=== PATIENT | male | born 1990 | race Caucasian/White ===

== ENCOUNTER → 2023-03-28 08:42 | Outpatient (BNVA) | payer OTHER, SELFPAY | PROVIDERS: PCP Pediatrics; Visit Provider Physician Assistant Medical | DX: S33.9XXA Sprain of unspecified parts of lumbar spine and pelvis, initial encounter (principal); X50.1XXA Overexertion from prolonged static or awkward postures, initial encounter; M46.1 Sacroiliitis, not elsewhere classified | CPT/HCPCS: 99203 ==

== ENCOUNTER → 2023-04-05 08:05 | Outpatient (BNVA) | payer OTHER, SELFPAY | PROVIDERS: PCP Internal Medicine; Visit Provider Physician Assistant Medical | DX: S33.9XXA Sprain of unspecified parts of lumbar spine and pelvis, initial encounter (principal); X50.1XXA Overexertion from prolonged static or awkward postures, initial encounter | CPT/HCPCS: 99214 ==

== ENCOUNTER → 2023-04-14 10:11 | Outpatient (BNVA) | payer OTHER, SELFPAY | PROVIDERS: PCP Internal Medicine; Visit Provider Physician Assistant Medical | DX: S39.012A Strain of muscle, fascia and tendon of lower back, initial encounter (principal); X58.XXXA Exposure to other specified factors, initial encounter; M53.3 Sacrococcygeal disorders, not elsewhere classified | CPT/HCPCS: 99213 ==

== ENCOUNTER → 2023-04-28 08:10 | Outpatient (BNVA) | payer OTHER, SELFPAY | PROVIDERS: PCP Internal Medicine; Visit Provider Physician Assistant Medical | DX: S33.9XXD Sprain of unspecified parts of lumbar spine and pelvis, subsequent encounter (principal); X50.1XXD Overexertion from prolonged static or awkward postures, subsequent encounter; M46.1 Sacroiliitis, not elsewhere classified | CPT/HCPCS: 99213 ==

== ENCOUNTER → 2023-05-12 08:18 | Outpatient (BNVA) | payer OTHER, SELFPAY | PROVIDERS: PCP Internal Medicine; Visit Provider Physician Assistant Medical | DX: S33.9XXA Sprain of unspecified parts of lumbar spine and pelvis, initial encounter (principal); X50.3XXA Overexertion from repetitive movements, initial encounter | CPT/HCPCS: 99213 ==

== ENCOUNTER → 2023-06-02 08:26 | Outpatient (BNVA) | payer OTHER, SELFPAY | PROVIDERS: PCP Internal Medicine; Visit Provider Physician Assistant Medical | DX: S33.9XXA Sprain of unspecified parts of lumbar spine and pelvis, initial encounter (principal); X50.3XXA Overexertion from repetitive movements, initial encounter; M53.3 Sacrococcygeal disorders, not elsewhere classified; M54.16 Radiculopathy, lumbar region | CPT/HCPCS: 99213 ==

== ENCOUNTER 2023-06-02 09:00 | Outpatient (RCR) | payer OTHER, BC, SELFPAY ==
--- NOTE | 2023-04-04 09:26 | MHC.PT.EP ---
[facility] [place] Office [place] Office [place] Office [address] [phone] F: [phone] F: [phone] F: [phone] F: [phone] Physical Therapy Plan of Care Date of Evaluation: Date of Surgery: Diagnosis: lumbosacral strain with SI pain. Assessment: Patient is a 33 year old R handed male who presents with s/s consistent with lumbosacral strain, SI pain. 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 Patient past medical history is unremarkable. Current impairments include pain, posture, ROM, strength, activity tolerance and functional mobility. Functional limitations include decreased ability to walk, stand, lift, push, pull, drive, and perform most daily activities without modification. Patient is motivated with good rehab potential. Skilled PT will address impairments and functional limitations in order to achieve goals. Frequency and Duration: The patient will be seen 2x/week for 5 weeks Short Term Goals: I with HEP - 2 weeks centralize/eliminate s/s - 3 weeks TTP absent, normal tissue tension - 3 weeks Manager [employer] Goals: Restore full pain free AROM - 5 weeks safe return to all work activities with improved awareness of body mechanics - 5 weeks Oswestry 18% or less - 5 weeks Pain free with all daily activities - 5 weeks Treatment Plan: Modalities to reduce pain, spasms and effusion. Manual therapy to restore motion and function. Therapeutic exercise to improve strength and flexibility. Neuromuscular re-education for posture and balance. Therapeutic activities to return to functional activities of daily living. Electronically signed by: Stephen White, PT Please sign and return to therapist. Thank you for your referral.
--- NOTE | 2023-08-30 13:21 | MHC.PT.DC ---
[facility] [place] Office [place] Office [place] Office [address] [phone] F: [phone] F: [phone] F: [phone] F: [phone] Physical Therapy Discharge Report Diagnosis: lumbosacral strain with SI pain. Date of Surgery: Date of Evaluation: 04/04/23 Date of Discharge: 06/16/23 Treatments to Date: 16 Cancellations to Date: No Shows to Date: Discharge Status: Independent with HEP Discharge Summary: 06/02/23: pt has progressed well over the course of skilled PT. However, he still has been dealing with residual s/s that he has not been able to relinquish over the course of the last few weeks. He still has intermittent s/s in L leg per his report. He is I with HEP. Until a month ago, his s/s had shown promising centralization. Due to recurrence of s/s into leg, we will hold at this time and await MRI imaging. His oswestry at this time is 34% (70% on evaluation). He does have full AROM at this time. 05/25/23: pt 30 minutes late again. notes he has been having intermittent s/s since yesterday. I asked if he had used his HEP to manage which he notes he did a little and the s/s would go away. I educated him thoroughly in the importance of knowing how/being confident in ability to manage s/s, knowing which exercises to practice should s/s arrise. we will review this again and I will re-issue HEP NV. 05/18/23: pt progressing well and ready to taper to HEP. we discussed plan and we will d/c to HEP after 1x/week for2 more weeks. 05/16/23: pt progressing well with skilled PT. reduced discomfort and improved functional mobility tolerance. we will continue 1 more visit then d/c to HEP. 05/13/23: pt progressed with walking and strength. starting light duty on Tuesday. we will continue to progress for 1 more week then likely d/c to HEP. 05/11/23: pt 30 min late. accommodated. progressed with skilled PT for core stab, centralizing s/s and reducing tissue tension. good response. 05/04/23: pt continues to demonstrate improved functional mobility, ROM, and ease of movement. However, he still does have difficulty performing more strenuous and activities as well as being on his feet for more than 20-30 minutes. 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 He still has impairments including tissue tension, pain and functional mobility. He also has functional limitations such as walking, standing, transfers, bending, lifting, and other more strenuous types of activity. I would like to continue with skilled PT for 3 more weeks to ensure safe return to all daily and work activities. He has demonstrated good compliance and carryover as well as good motivation and rehab potential throughout the course of PT. 05/02/23: pt has been feeling better overall with skilled PT but still has intermittent lingering discomfort seemingly related to positions and activities. he is able to manage. 04/27/23: pt with less s/s today. able to resume functional progression with no adverse reactions. he will follow up with work connection and tentatively plan on 1 more week of PT. 04/25/23: pt with increased s/s today. we held on functional training and focused on education. some lat shift present which progressed with increased amb time. educated in importance of self maintenance of s/s at home. 04/22/23: pt continues to progress with good carryover and body mechanics with few cues required. educated him in importance of stretching and continuing to be attentive to body mechanics. 04/20/23: pt has been feeling much better overall. we held on stim and progressed core stab with good results. we will continue to progress higher level activities. 04/13/23: pt progressing well. we have continued to educate on body mechanics and core stab. we will continue to progress functional activity as long as no adverse reactions are experienced. 04/11/23: lateral shift resolved. progressing cautiously with strength/stretch and functional activities. educated thoroughly again today as pt is frustrated he isn't improving faster. 04/06/23: still lateral shifted to lesser degree today. we repositioned in prone and started gentle ext after lateral shift corrections today and finished with IF. good response and education continued. Patient is a 33 year old R handed male who presents with s/s consistent with lumbosacral strain, SI pain. 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 Pt was injured at work with repetitive use of sledge hammer 13 days ago. Patient past medical history is unremarkable. Current impairments include pain, posture, ROM, strength, activity tolerance and functional mobility. Functional limitations include decreased ability to walk, stand, lift, push, pull, drive, and perform most daily activities without modification. Patient is motivated with good rehab potential. Skilled PT will address impairments and functional limitations in order to achieve goals. Electronically signed by: Stephen White, PT Please sign and return to therapist. Thank you for your referral.
== END 2023-08-30 13:23 | disposition home or self-care (01) ==
LOC: HO.PTCHIC 09:00
PROVIDERS: PCP Internal Medicine; Visit Provider Physician Assistant Medical
DX: S33.9XXD Sprain of unspecified parts of lumbar spine and pelvis, subsequent encounter (principal); X50.1XXD Overexertion from prolonged static or awkward postures, subsequent encounter; M46.1 Sacroiliitis, not elsewhere classified
CPT/HCPCS: 97014; 97110; 97140; 97161; 97530

== ENCOUNTER 2023-06-20 20:04 | Outpatient (REF) | payer OTHER, SELFPAY ==
--- NOTE | ~2023-06-20 | MR_ITS ---
EXAMINATION: MR LUMBAR SPINE WITHOUT CONTRAST CLINICAL INFORMATION: Lumbosacral strain COMPARISON: Lumbar spine radiographs on 04/05/2023 TECHNIQUE: MRI of the lumbar spine was obtained using routine sequences without contrast. FINDINGS: Slight straightening of the normal lumbar lordosis. Trace retrolisthesis at L4-5. No abnormal bone marrow signal. The vertebral body heights are preserved. Disc desiccation at L4-5 without significant disc height loss. The visualized spinal cord is normal in caliber. No abnormal cord signal. The conus medullaris terminates at L1. T12-L1: No significant spinal canal or neural foraminal narrowing. L1-2: No significant spinal canal or neural foraminal narrowing. L2-3: No significant spinal canal or neural foraminal narrowing. L3-4: Mild diffuse disc bulge. Mild right greater than left neural foraminal narrowing. No significant spinal canal stenosis. L4-5: Diffuse disc bulge with superimposed left paracentral/subarticular disc protrusion. There is severe spinal canal stenosis with mass effect on the cauda equina nerve roots. Mild right greater than left neural foraminal narrowing. L5-S1: Diffuse disc bulge and bilateral facet arthrosis. Mild neural foraminal narrowing with the disc abutting the exiting L5 nerve roots bilaterally. No significant spinal canal stenosis. The paravertebral soft tissues are unremarkable. MR/MR lumbar spine wo con IMPRESSION: At L4-5, there is a left paracentral/subarticular disc protrusion causing severe spinal canal stenosis with mass effect on the cauda equina nerve roots. At L5-S1, degenerative disc and facet arthrosis results in mild bilateral neural foraminal narrowing with the disc abutting the exiting L5 nerve roots bilaterally.
== END 2023-06-20 20:05 | disposition home or self-care (01) ==
LOC: HO.MRI 20:04
PROVIDERS: PCP Internal Medicine; Visit Provider Internal Medicine
DX: M54.17 Radiculopathy, lumbosacral region (principal)
CPT/HCPCS: 72148

== ENCOUNTER → 2023-06-23 08:42 | Outpatient (BNVA) | payer OTHER, SELFPAY | PROVIDERS: PCP Internal Medicine; Visit Provider Physician Assistant Medical | DX: S33.9XXD Sprain of unspecified parts of lumbar spine and pelvis, subsequent encounter (principal); X50.3XXD Overexertion from repetitive movements, subsequent encounter; M53.3 Sacrococcygeal disorders, not elsewhere classified; M54.16 Radiculopathy, lumbar region | CPT/HCPCS: 99213 ==

== ENCOUNTER → 2023-07-13 08:10 | Outpatient (BNVA) | payer OTHER, SELFPAY | PROVIDERS: PCP Internal Medicine; Visit Provider Internal Medicine | DX: M51.27 Other intervertebral disc displacement, lumbosacral region (principal) | CPT/HCPCS: 99214 ==

== ENCOUNTER 2023-07-19 08:56 | Outpatient (AMB) | payer OTHER, SELFPAY ==
--- NOTE | 2023-07-19 09:02 | MHC.OFFVIS ---
Intake Vital Signs 07/19/23 09:06 Height 6 ft Weight 226 lb 6 oz BMI 30.7 BP 126/75 Blood Pressure Location Lt brachial Position Sitting Pulse 78 Pulse Source Pulse Oximeter Pulse Oximetry (%) 99 Oxygen Delivery Method Room Air Intake Visit Reasons: LUMBAR RADICULOPATHY/confirmed, Low back pain radiating to both legs Allergies No Known Allergies Allergy (Verified 07/19/23 09:03) HPI Lumbar History of Present Illness Location Reports midline lumbar, bilateral legs and sacral/coccygeal Current symptoms Reports weakness, numbness and tingling Quality Reports burning, shooting, spasms and dull ache Pain scale (0-10) 6 Severity moderate Onset 4-6 months Duration of episode 21-30 mins Exacerbated by lumbar flexion, lumbar extension, walking, standing, side bending, rotation, exertional activity and other (coughing, sneezing) Improved by sitting and rest Lower ext dermatomes involved L4: bilateral and L5: bilateral Associated symptoms Reports bladder dysfunction and difficulty walking (weakness in bilateral thigh and knee, left>right); Denies foot drop Pertinent social history currently employed (light duty, no lifting) Associated Accidents/Injuries Date of accident 03/23/23 Mechanism of injury [employer] 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 Symptoms at time of injury Severe pain with tightness and spasms to his left lower back and numbness and tingling down bilateral legs posteriorly and lateraly Symptoms prior to injury None, denies previous back pain Location of accident work Worker's compensation Yes Current Medications/Treatments Medications acetaminophen, NSAIDs and muscle relaxants Treatments physical therapy HPI Comments History of Present Illness Details Patient is a 33 years old male presents today for initial evaluation of low back pain with radiation of pain into his both legs. This is a Worker?s Comp case, date of injury 03/23/23. Patient is a [email or web address] worker who injured his low back 5 months ago while working on a machine, swinging sledge hammer, lifting, bending, twisting type motions which caused him significant pain and spasms. He completed Physical Therapy 04/04/23-06/02/23 with partial improvement in his functioning but no pain reduction. Back pain is mostly on the left side with significant tenderness in his left mid to low spine paraspinals with and localized tenderness in the projection of left sacroiliac joint area. Patient reports bilateral saddle anesthesia, worse on the left and both legs go numb for 10-15 seconds at the end of urination with pushing. Denies bowel dysfunction. 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 Pain negatively affects his daily functioning, ADLs, sleep, social interactions and quality of life. Patient reports minimal and temporary relief with recent PT course, NSAIDs, muscle relaxant and Tylenol. Patient reports he was seen by neurosurgeon Dr. Kennedy at [facility] yesterday recommended cortisone injection prior to potential back surgery. Recent MRI results are noted below. Review of Systems Const All systems reviewed & are unremarkable except as noted in HPI and below Reports weakness Musc Reports numbness and Reports tingling Neuro Reports numbness, Reports tingling and Reports weakness Physical Exam Vital Signs: Last Vital Signs Pulse 78 07/19/23 09:06 BP 126/75 07/19/23 09:06 Pulse Ox 99 07/19/23 09:06 Oxygen Delivery Method Room Air 07/19/23 09:06 BMI result Body Mass Index 30.7 General: Appears afebrile. Alert and oriented. Mood and affect appropriate. Follows and participates in conversation appropriately. Respiratory effort is unlabored. No cough. Able to transition from sit to stand unassisted. Ambulates with bilaterally normal heel strike and toe off, reports increase in back pain with heel walking. Back/Spine/Pelvis Other: Limited lumbar ROM due to pain. Slightly antalgic gait. No limping. Can flex forward to 65-70 degrees and extend to 5-10 degrees before experiencing lumbar pain. Demonstrates 5/5 right and 4/5 left strength of quadriceps bilaterally as well as flexion/dorsiflexion of bilateral feet against resistance. 2+ pedal pulses bilaterally. Seated straight leg rise with dorsiflexion positive bilaterally, left>right. Diminished patellar and +1 achilles reflexes bilaterally. Facet loading test positive bilaterally. Onur sign, Napoleon?s, Gaenslen, Pelvic compression, Stinchfield tests are positive on the left. No groin pain with I/E hip rotations. Valsalva maneuver positive. Results Reviewed Results Reviewed: MR LUMBAR SPINE WITHOUT CONTRAST 06/20/23 CLINICAL INFORMATION: Lumbosacral strain COMPARISON: Lumbar spine radiographs on 04/05/2023 TECHNIQUE: MRI of the lumbar spine was obtained using routine sequences without contrast. FINDINGS: Slight straightening of the normal lumbar lordosis. Trace retrolisthesis at L4-5. No abnormal bone marrow signal. The vertebral body heights are preserved. Disc desiccation at L4-5 without significant disc height loss. The visualized spinal cord is normal in caliber. No abnormal cord signal. The conus medullaris terminates at L1. T12-L1: No significant spinal canal or neural foraminal narrowing. L1-2: No significant spinal canal or neural foraminal narrowing. L2-3: No significant spinal canal or neural foraminal narrowing. L3-4: Mild diffuse disc bulge. Mild right greater than left neural foraminal narrowing. No significant spinal canal stenosis. L4-5: Diffuse disc bulge with superimposed left paracentral/subarticular disc protrusion. There is severe spinal canal stenosis with mass effect on the cauda equina nerve roots. Mild right greater than left neural foraminal narrowing. L5-S1: Diffuse disc bulge and bilateral facet arthrosis. Mild neural foraminal narrowing with the disc abutting the exiting L5 nerve roots bilaterally. No significant spinal canal stenosis. The paravertebral soft tissues are unremarkable. IMPRESSION: At L4-5, there is a left paracentral/subarticular disc protrusion causing severe spinal canal stenosis with mass effect on the cauda equina nerve roots. At L5-S1, degenerative disc and facet arthrosis results in mild bilateral neural foraminal narrowing with the disc abutting the exiting L5 nerve roots bilaterally. XR LUMBOSACRAL SPINE WITH OBLIQUES 04/05/23 CLINICAL INFORMATION: Left lumbar strain and radiculopathy. COMPARISON: None available. TECHNIQUE: AP, both oblique, and lateral views of the lumbar spine. Lateral view of the lumbosacral junction. FINDINGS: The vertebral bodies and posterior elements are normal. The disc spaces are preserved and the vertebral alignment is normal. The paraspinal soft tissues are normal. IMPRESSION: Unremarkable lumbar spine. Assessment & Plan Assessment & Plan (1) Low back pain radiating to both legs: Code(s): M54.50 - Low back pain, unspecified; M79.604 - Pain in right leg; M79.605 - Pain in left leg (2) Lumbar radiculopathy: Code(s): M54.16 - Radiculopathy, lumbar region (3) Lumbar spinal stenosis: Code(s): M48.061 - Spinal stenosis, lumbar region without neurogenic claudication (4) Sacroiliac joint pain: Code(s): M53.3 - Sacrococcygeal disorders, not elsewhere classified Plan Patient presents with spinal stenosis related pain with bladder dysfunction, saddle anesthesia, back and bilateral leg pain, left worse than right. Neurosurgical evaluation completed yesterday on 07/18/[address] Kennedy at [facility] per patient who recommends an epidural steroid injection. MRI lumbar spine noted for severe spinal canal stenosis with mass effect on the cauda equina nerve roots. We will obtain neurosurgical evaluation report prior to scheduling Bilateral L4-L5 TFESI vs Caudal ADRIANE with catheter injection with local and fluoroscopy. Expectations, risks and benefits were reviewed. Patient is aware he will be contacted to schedule this procedure. Patient is aware to call if pain or symptoms worsen or seek emergency care. Scripts provided for gabapentin and diclofenac potassium, side effects and precautions were discussed with patient. All questions were answered and the patient is in agreement of plan. Follow-up after injections and sooner as needed. Medications: New gabapentin 300 mg PO BEDTIME 30 days 30 caps 0RF pain M48.061 - Spinal stenosis, lumbar region without neurogenic claudication, M54.16 - Radiculopathy, lumbar region diclofenac potassium 50 mg PO BID 30 days 60 tabs 0RF pain M48.061 - Spinal stenosis, lumbar region without neurogenic claudication, M54.16 - Radiculopathy, lumbar region Discontinued ibuprofen Discontinued Reason: Patient Completed Course 800 mg PO TID 30 tabs 0RF cyclobenzaprine Discontinued Reason: Patient Completed Course 10 mg PO BEDTIME PRN 10 tabs 0RF muscle spasm Coding Level of Care Code New Pt Level 4 (69142) Diagnoses Low back pain radiating to both legs M54.50; M79.604; M79.605 Lumbar radiculopathy M54.16 Lumbar spinal stenosis M48.061 Sacroiliac joint pain M53.3
[2023-07-19 09:06] VITALS: BP 126/75; PULSE 78; O2SAT 99; BMI 30.7
== END 2023-07-19 09:27 | disposition home or self-care (01) ==
PROVIDERS: PCP Internal Medicine; Referring Provider Physician Assistant Medical; Visit Provider Nurse Practitioner Family
DX: M54.50 Low back pain, unspecified (principal); M79.604 Pain in right leg; M79.605 Pain in left leg; M54.16 Radiculopathy, lumbar region; M48.061 Spinal stenosis, lumbar region without neurogenic claudication; M53.3 Sacrococcygeal disorders, not elsewhere classified
CPT/HCPCS: 99204

== ENCOUNTER → 2023-07-19 08:56 | Outpatient (BNVA) | payer OTHER, SELFPAY | PROVIDERS: PCP Internal Medicine; Visit Provider Nurse Practitioner Family | DX: M54.16 Radiculopathy, lumbar region (principal); M48.061 Spinal stenosis, lumbar region without neurogenic claudication; M53.3 Sacrococcygeal disorders, not elsewhere classified; M79.604 Pain in right leg; M79.605 Pain in left leg | CPT/HCPCS: 99202; 99212 ==

== ENCOUNTER → 2023-07-22 08:09 | Outpatient (BNVA) | payer OTHER, SELFPAY | PROVIDERS: PCP Internal Medicine; Visit Provider Internal Medicine | DX: M51.26 Other intervertebral disc displacement, lumbar region (principal); M48.061 Spinal stenosis, lumbar region without neurogenic claudication | CPT/HCPCS: 99213 ==

== ENCOUNTER → 2023-08-05 08:09 | Outpatient (BNVA) | payer OTHER, SELFPAY | PROVIDERS: PCP Internal Medicine; Visit Provider Internal Medicine | DX: M51.26 Other intervertebral disc displacement, lumbar region (principal); M48.061 Spinal stenosis, lumbar region without neurogenic claudication | CPT/HCPCS: 99213 ==

== ENCOUNTER → 2023-08-29 08:33 | Outpatient (BNVA) | payer OTHER, SELFPAY | PROVIDERS: PCP Internal Medicine; Visit Provider Internal Medicine | DX: M51.26 Other intervertebral disc displacement, lumbar region (principal); M48.00 Spinal stenosis, site unspecified | CPT/HCPCS: 99213 ==

== ENCOUNTER 2023-09-15 06:05 | Outpatient (REF) | payer OTHER, SELFPAY ==
--- NOTE | ~2023-09-15 | FL_ITS ---
EXAMINATION: Intraoperative fluoroscopy CLINICAL INFORMATION: Radiculopathy, lumbar region COMPARISON: Lumbar spine MRI 06/20/2023 TECHNIQUE: Intraoperative fluoroscopy was provided for use by Dr. Mallory. A total of 3 images were saved to PACS. A radiologist was not present during imaging. Today's dictation is only for administrative purposes to document intraoperative fluoroscopic usage. TOTAL FLUOROSCOPIC TIME: 0.4 minutes DAP: 0.089 mGy-cm FL/FL guidance in treatment room FINDINGS~\^^ Intraoperative fluoroscopy provided for use by Dr. Mallory. Please see operative note for detailed findings.
== END 2023-09-15 06:06 | disposition home or self-care (01) ==
LOC: CF 06:05
PROVIDERS: Visit Provider Internal Medicine
DX: M54.16 Radiculopathy, lumbar region (principal)
CPT/HCPCS: 64483; J1100; Q9967

== ENCOUNTER 2023-09-15 07:40 | Outpatient (AMB) | payer OTHER, SELFPAY ==
[2023-09-15 07:46] VITALS: BP 132/70; PULSE 90; RESP 16; O2SAT 100; BMI 29.8
--- NOTE | 2023-09-15 07:46 | MHC.OFFVIS ---
Intake Vital Signs 09/15/23 07:46 09/15/23 08:44 Height 6 ft 6 ft Weight 220 lb 220 lb BMI 29.8 29.8 BP 132/70 122/68 Blood Pressure Location Rt brachial Lt brachial Position Sitting Sitting Respiration 16 16 Pulse 90 86 Pulse Source Pulse Oximeter Pulse Oximeter Pulse Oximetry (%) 100 97 Oxygen Delivery Method Room Air Room Air Comment Pre-op post-Op Intake Visit Reasons: laura L4-L5 TFESI Allergies No Known Allergies Allergy (Verified 09/15/23 07:47) HPI laura L4-L5 TFESI HPI Details Patient presents for scheduled procedure. Denies any recent cough, cold, infection, fever or other significant changes in medical history since last office visit. Physical Exam Vital Signs: Last Vital Signs Pulse 90 09/15/23 07:46 Resp 16 09/15/23 07:46 BP 132/70 09/15/23 07:46 Pulse Ox 100 09/15/23 07:46 Oxygen Delivery Method Room Air 09/15/23 07:46 BMI result Body Mass Index 29.8 Office Procedures Details: Transforaminal epidural steroid injection, Bilateral, L4/5 After obtaining written consent, pre-procedure blood pressure and heart rate were stable and recorded in the nursing record. The patient was placed in the prone position on the fluoroscopy table. The lumbosacral area was prepped with chloraprep, allowed to dry and draped in sterile fashion. Using fluoroscopy, the skin overlying our target was anesthetized with 0.5% lidocaine. A 22 gauge 3.5 inch spinal needle was advanced to the safe triangle in the upper pole of the right L4 foramen. No paresthesias were elicited with needle placement and aspiration was negative for blood and CSF. Correct needle position was confirmed with approximately 1 ml contrast dye (Omnipaque 180 mg/ml) injected under real-time fluoroscopy. No evidence of vascular or intrathecal uptake was seen and there was both epidural and peripheral spread of the contrast agent. 8 mg dexamethasone plus 1 ml containing 0.5% lidocaine was slowly injected. The needle was flushed and removed. The same procedure was repeated for the remaining levels. The skin was cleansed and a sterile bandages were applied. The patient tolerated the procedure well and no complications were encountered. Following the procedure the patient's vital signs were stable. The patient was discharged home in good condition with post-procedural instructions. Time Out: Immediately prior to the procedure, the following was verbally confirmed that there is a signed consent form and that the correct patient, planned procedure, site and side are consistent with documentation and that necessary equipment and/or blood products are available prior to the start of the case. Complications: none EBL: <5 cc 23558 - Lumbar/Sacral (bilateral) Procedure code (CPT) selection complete Assessment & Plan Assessment & Plan (1) Lumbar radiculopathy: Code(s): M54.16 - Radiculopathy, lumbar region Plan Patient is status post bilateral L4/5 TFESI. Patient tolerated procedure well and was discharged home in stable condition with discharge instructions. All questions were answered. We will follow-up via telephone or in clinic to assess response to therapy. A follow-up appointment was made during today's visit. Orders: Orders FL guidance in treatment room Today M54.16 - Radiculopathy, lumbar region Coding Level of Care Code Procedure Only Diagnoses Lumbar radiculopathy M54.16 CPT Codes Transforaminal Epidural Steroid Inj - TESI 3: 12485 - Lumbar/Sacral ([id number])
[2023-09-15 08:44] VITALS: BP 122/68; PULSE 86; RESP 16; O2SAT 97; BMI 29.8
== END 2023-09-15 08:36 | disposition home or self-care (01) ==
LOC: HO.PMCPRC 07:40
PROVIDERS: PCP Internal Medicine; Visit Provider Internal Medicine
DX: M54.16 Radiculopathy, lumbar region (principal)
CPT/HCPCS: 64483

== ENCOUNTER → 2023-10-12 08:08 | Outpatient (BNVA) | payer OTHER, SELFPAY | PROVIDERS: PCP Internal Medicine; Visit Provider Internal Medicine | DX: M51.26 Other intervertebral disc displacement, lumbar region (principal) | CPT/HCPCS: 99213 ==

== ENCOUNTER 2023-10-13 08:43 | Outpatient (AMB) | payer OTHER, SELFPAY ==
--- NOTE | 2023-10-13 08:44 | MHC.OFFVIS ---
Intake Vital Signs 10/13/23 08:49 Height 6 ft Weight 220 lb BMI 29.8 BP 135/85 Blood Pressure Location Lt brachial Position Sitting Pulse 73 Pulse Source Pulse Oximeter Pulse Oximetry (%) 98 Oxygen Delivery Method Room Air Intake Visit Reasons: s/p laura L4-L5 TFESI Intake Note: Pain today 01/22 Substance Abuse Prevention Coordinator Required: No Accompanied by: Spouse Allergies No Known Allergies Allergy (Verified 10/13/23 08:50) HPI HPI Comments History of Present Illness Details Patient presents today to assess response to Bilateral L4-L5 TFESI on 09/15/[address] Mallory. Patient reports one week of 60% pain relief with improvement in his numbness, tingling and shooting pain in both legs but no pain relief in his lower back, axial low back pain. Patient states per Dr. Kennedy neurosurgeon, patient was to undergo 2 rounds of injections prior to re-evaluation for surgical candidacy. Denies any weakness, foot drop, bladder or bowel dysfunction or saddle anesthesia. Patient would like to address his axial low back pain as next steps. He is also considering Chiropractic therapy as he had minimal function improvement and no pain reduction. Patient has not tried gabapentin 300 mg at bedtime and would like to trial a lower dose initially. Denies any recent cough, cold, infection, fever, any significant changes in his medical history, medications or recent hospitalizations. Past Procedures: 09/15/23: Bilateral L4-L5 TFESI- 60% pain relief for 1 week PRIOR: Patient is a 33 years old male presents today for initial evaluation of low back pain with radiation of pain into his both legs. This is a Worker?s Comp case, date of injury 03/23/23. Patient is a [employer] worker who injured his low back 5 months ago while working on a machine, swinging sledge hammer, lifting, bending, twisting type motions which caused him significant pain and spasms. He completed Physical Therapy 04/04/23-06/02/23 with partial improvement in his functioning but no pain reduction. Back pain is mostly on the left side with significant tenderness in his left mid to low spine paraspinals with and localized tenderness in the projection of left sacroiliac joint area. Patient reports bilateral saddle anesthesia, worse on the left and both legs go numb for 10-15 seconds at the end of urination with pushing. Denies bowel dysfunction. 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 Pain negatively affects his daily functioning, ADLs, sleep, social interactions and quality of life. Patient reports minimal and temporary relief with recent PT course, NSAIDs, muscle relaxant and Tylenol. Patient reports he was seen by neurosurgeon Dr. Kennedy [place] [facility] [place] recommended cortisone injection prior to potential back surgery. Recent MRI results are noted below. PRIOR: Reports midline lumbar, bilateral legs and sacral/coccygeal Current symptoms Reports weakness, numbness and tingling Quality Reports burning, shooting, spasms and dull ache Pain scale (0-10) 6 Severity moderate Onset 4-6 months Duration of episode 21-30 mins Exacerbated by lumbar flexion, lumbar extension, walking, standing, side bending, rotation, exertional activity and other (coughing, sneezing) Improved by sitting and rest Lower ext dermatomes involved L4: bilateral and L5: bilateral Associated symptoms Reports bladder dysfunction and difficulty walking (weakness in bilateral thigh and knee, left>right); Denies foot drop Pertinent social history currently employed (light duty, no lifting) Associated Accidents/Injuries Date of accident 03/23/23 Mechanism of injury JEANNIE lesvia 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 Symptoms at time of injury Severe pain with tightness and spasms to his left lower back and numbness and tingling down bilateral legs posteriorly and laterally Symptoms prior to injury None, denies previous back pain Location of accident work Worker's compensation Yes Medications acetaminophen, NSAIDs and muscle relaxants Treatments physical therapy Review of Systems Const All systems reviewed & are unremarkable except as noted in HPI and below Physical Exam Vital Signs: Last Vital Signs Pulse 73 10/13/23 08:49 BP 135/85 10/13/23 08:49 Pulse Ox 98 10/13/23 08:49 Oxygen Delivery Method Room Air 10/13/23 08:49 BMI result Body Mass Index 29.8 General: Appears afebrile. Alert and oriented. Mood and affect appropriate. Follows and participates in conversation appropriately. Respiratory effort is unlabored. No cough. Able to transition from sit to stand unassisted. Ambulates with bilaterally normal heel strike and toe off, reports increase in back pain with heel walking. Back/Spine/Pelvis Other: Limited lumbar ROM due to pain. Normal gait. No limping. Can flex forward to 60-70 degrees and extend to 5-10 degrees before experiencing lumbar pain. Demonstrates 5/5 right and 4/5 left due to pain strength of quadriceps bilaterally as well as flexion/dorsiflexion of bilateral feet against resistance. 2+ pedal pulses bilaterally. Seated straight leg rise with dorsiflexion positive bilaterally, left>right. Diminished patellar and +1 achilles reflexes bilaterally. Facet loading test positive bilaterally. Onur sign, Napoleon?s, Gaenslen, Pelvic compression, Stinchfield tests are positive on the left. No groin pain with I/E hip rotations. Valsalva maneuver positive. Cervical Spine: cervical ROM normal and No Cervical spine tenderness Thoracic/Lumbar Spine: thoracic and lumbar spine normal to inspection, No Thoracic/lumbar spine scar(s), Lasegue's sign positive bilateral, pain with thoraco-lumbar ROM, thoraco-lumbar ROM limited, No thoracic spinal tenderness and lumbar spinal tenderness at L4 and at L5 Pelvis: buttock tenderness bilaterally Sacroiliac joints: bilaterally tender to palpation Results Reviewed Results Reviewed: MR LUMBAR SPINE WITHOUT CONTRAST 06/20/23 CLINICAL INFORMATION: Lumbosacral strain COMPARISON: Lumbar spine radiographs on 04/05/2023 TECHNIQUE: MRI of the lumbar spine was obtained using routine sequences without contrast. FINDINGS: Slight straightening of the normal lumbar lordosis. Trace retrolisthesis at L4-5. No abnormal bone marrow signal. The vertebral body heights are preserved. Disc desiccation at L4-5 without significant disc height loss. The visualized spinal cord is normal in caliber. No abnormal cord signal. The conus medullaris terminates at L1. T12-L1: No significant spinal canal or neural foraminal narrowing. L1-2: No significant spinal canal or neural foraminal narrowing. L2-3: No significant spinal canal or neural foraminal narrowing. L3-4: Mild diffuse disc bulge. Mild right greater than left neural foraminal narrowing. No significant spinal canal stenosis. L4-5: Diffuse disc bulge with superimposed left paracentral/subarticular disc protrusion. There is severe spinal canal stenosis with mass effect on the cauda equina nerve roots. Mild right greater than left neural foraminal narrowing. L5-S1: Diffuse disc bulge and bilateral facet arthrosis. Mild neural foraminal narrowing with the disc abutting the exiting L5 nerve roots bilaterally. No significant spinal canal stenosis. The paravertebral soft tissues are unremarkable. IMPRESSION: At L4-5, there is a left paracentral/subarticular disc protrusion causing severe spinal canal stenosis with mass effect on the cauda equina nerve roots. At L5-S1, degenerative disc and facet arthrosis results in mild bilateral neural foraminal narrowing with the disc abutting the exiting L5 nerve roots bilaterally. XR LUMBOSACRAL SPINE WITH OBLIQUES 04/05/23 CLINICAL INFORMATION: Left lumbar strain and radiculopathy. COMPARISON: None available. TECHNIQUE: AP, both oblique, and lateral views of the lumbar spine. Lateral view of the lumbosacral junction. FINDINGS: The vertebral bodies and posterior elements are normal. The disc spaces are preserved and the vertebral alignment is normal. The paraspinal soft tissues are normal. IMPRESSION: Unremarkable lumbar spine. Assessment & Plan Assessment & Plan (1) Lumbar spinal stenosis: Code(s): M48.061 - Spinal stenosis, lumbar region without neurogenic claudication (2) Lumbar radiculopathy: Code(s): M54.16 - Radiculopathy, lumbar region (3) Lumbosacral spondylosis: Code(s): M47.817 - Spondylosis without myelopathy or radiculopathy, lumbosacral region (4) Low back pain radiating to both legs: Code(s): M54.50 - Low back pain, unspecified; M79.604 - Pain in right leg; M79.605 - Pain in left leg (5) Intractable low back pain: Code(s): M54.59 - Other low back pain (6) Sacroiliac joint pain: Code(s): M53.3 - Sacrococcygeal disorders, not elsewhere classified Plan Patient is status post bilateral L4-L5 TFESI on 09/15/23 with 60% pain relief for 1 week. We will consider Caudal ADRIANE with catheter for 2nd round of injection with sedation and fluoroscopy. If no relief, patient will return to Dr. Kennedy for surgical candidacy re-evaluation. For axial low back pain, we will proceed with Bilateral Diagnostic L3-L4-L5 MBB with oral Ativan, local and fluoroscopy. Expectations, risks and benefits were reviewed. Patient is aware he will be contacted to schedule this procedure. If he has significant relief from the diagnostic blocks for her axial low back pain, will consider either therapeutic injections, Sprint PNS or RFA depending on his preference. Scripts provided for gabapentin, side effects and precautions were reviewed with patient. Referral to Chiropractic Therapy per patient's request. Patient is aware to call if pain or symptoms worsen or seek emergency care. All questions were answered and the patient is in agreement of plan. Follow-up after injections and sooner as needed. Orders: Referrals Chiropractic Referral M47.817 - Spondylosis without myelopathy or radiculopathy, lumbosacral region, M48.061 - Spinal stenosis, lumbar region without neurogenic claudication, M54.16 - Radiculopathy, lumbar region Medications: Changed From gabapentin 300 mg PO BEDTIME 30 days 30 caps 0RF pain M48.061 - Spinal stenosis, lumbar region without neurogenic claudication, M54.16 - Radiculopathy, lumbar region To gabapentin 100 mg PO TID 30 days 90 caps 0RF pain M48.061 - Spinal stenosis, lumbar region without neurogenic claudication, M54.16 - Radiculopathy, lumbar region Coding Level of Care Code Est Pt Level 4 (66067) Diagnoses Lumbar spinal stenosis M48.061 Lumbar radiculopathy M54.16 Lumbosacral spondylosis M47.817 Low back pain radiating to both legs M54.50; M79.604; M79.605 Intractable low back pain M54.59 Sacroiliac joint pain M53.3
[2023-10-13 08:49] VITALS: BP 135/85; PULSE 73; O2SAT 98; BMI 29.8
== END 2023-10-13 09:35 | disposition home or self-care (01) ==
PROVIDERS: PCP Internal Medicine; Visit Provider Nurse Practitioner Family
DX: M48.061 Spinal stenosis, lumbar region without neurogenic claudication (principal); M54.16 Radiculopathy, lumbar region; M47.817 Spondylosis without myelopathy or radiculopathy, lumbosacral region; M54.50 Low back pain, unspecified; M79.604 Pain in right leg; M79.605 Pain in left leg; M54.59 Other low back pain; M53.3 Sacrococcygeal disorders, not elsewhere classified
CPT/HCPCS: 99214

== ENCOUNTER → 2023-10-13 08:43 | Outpatient (BNVA) | payer OTHER, SELFPAY | PROVIDERS: PCP Internal Medicine; Visit Provider Nurse Practitioner Family | DX: M48.061 Spinal stenosis, lumbar region without neurogenic claudication (principal); M47.26 Other spondylosis with radiculopathy, lumbar region; M54.59 Other low back pain; M53.3 Sacrococcygeal disorders, not elsewhere classified; Z98.890 Other specified postprocedural states | CPT/HCPCS: 99212 ==

== ENCOUNTER 2023-11-03 06:10 | Outpatient (REF) | payer OTHER, SELFPAY ==
--- NOTE | ~2023-11-03 | FL_ITS ---
EXAMINATION: XR FLUOROSCOPY WITH IMAGES CLINICAL INFORMATION: Lumbar spondylosis without myelopathy or radiculopathy. COMPARISON: Intraoperative fluoroscopy dated 09/15/2023. TECHNIQUE: Fluoroscopy Supervised By: Dr. Celeste Wiley. Fluoroscopy Time: 0.1 minutes. Cumulative Dose: 3.24 mGy. DAP: 0.0563 mGym2. Images: 3. FINDINGS: The submitted images show injection needles and injected contrast in the vicinity of the bilateral L3-L4, L4-L5 and L5-S1 neural foramina. FL/FL guidance in treatment room IMPRESSION: Intraoperative fluoroscopic guidance is provided during lumbar pain management procedure. Please see the patient's Operative Report for full procedural details.
== END 2023-11-03 06:11 | disposition home or self-care (01) ==
LOC: CF 06:10
PROVIDERS: Visit Provider Internal Medicine
DX: M47.817 Spondylosis without myelopathy or radiculopathy, lumbosacral region (principal)
CPT/HCPCS: 64493; 64494; J2795; Q9967

== ENCOUNTER 2023-11-03 12:46 | Outpatient (AMB) | payer OTHER, SELFPAY ==
--- NOTE | 2023-11-03 13:14 | MHC.OFFVIS ---
Intake Vital Signs 11/03/23 13:36 11/03/23 13:36 Height 6 ft Weight 220 lb BMI 29.8 BP 128/80 110/74 Blood Pressure Location Lt brachial Lt brachial Position Sitting Sitting Respiration 18 16 Pulse 88 76 Pulse Source Pulse Oximeter Pulse Oximeter Temp 95 F L Pulse Oximetry (%) 96 95 Oxygen Delivery Method Room Air Room Air Comment Pre-Op Post-Op Intake Visit Reasons: Oscar Dx L3-L4-L5 MBB Allergies No Known Allergies Allergy (Verified 10/13/23 08:50) HPI Oscar Dx L3-L4-L5 MBB HPI Details Patient presents for scheduled procedure. Denies any recent cough, cold, infection, fever or other significant changes in medical history since last office visit. Physical Exam Vital Signs: Last Vital Signs Temp 95 F L 11/03/23 13:36 Pulse 76 11/03/23 13:36 Resp 16 11/03/23 13:36 BP 110/74 11/03/23 13:36 Pulse Ox 95 11/03/23 13:36 Oxygen Delivery Method Room Air 11/03/23 13:36 BMI result Body Mass Index 29.8 Office Procedures Lumbar/Sacral Facet Inj Details: Lumbar Medial Branch Block, Bilateral L3, L4 medial branches and L5 Dorsal Ramus (2 levels, 3 nerves) After obtaining written consent, pre-procedure blood pressure and pulse were recorded and are in the nursing record for review. The patient was placed in a prone position. The respective lumbosacral area was prepped with chloraprep and draped in sterile fashion. The skin over the target medial branch nerves was anesthetized with 0.5% lidocaine. A 22 gauge 3.5 inch needle was inserted into the target medial branch nerve under fluoroscopic guidance. No paresthesias were elicited with needle placement and aspiration was negative for blood and CSF. Next, 0.2cc of omnipaque 180 was injected to verify positioning. Next 0.5 ml 0.5% ropivicaine was injected (0.5cc total per level). The identical procedure was performed at the remaining levels. The skin was cleansed and a sterile bandage was applied. Following the procedure the patient's vital signs were stable. The patient tolerated the procedure well and no complications were encountered. Following the procedure the patient's vital signs were stable. The patient was discharged home in good condition with post-procedural instructions. Time Out: Immediately prior to the procedure, the following was verbally confirmed that there is a signed consent form and that the correct patient, planned procedure, site and side are consistent with documentation and that necessary equipment and/or blood products are available prior to the start of the case. Complications: none EBL: <5 cc 95453 - second level, with Fluoroscopy (bilateral) Procedure code (CPT) selection complete Assessment & Plan Assessment & Plan (1) Lumbosacral spondylosis: Code(s): M47.817 - Spondylosis without myelopathy or radiculopathy, lumbosacral region Plan Patient is status post bilateral diagnostic L3, L4 medial branch and L5 dorsal ramus blocks. Patient tolerated procedure well and was discharged home in stable condition with discharge instructions. All questions were answered. We will follow-up via telephone or in clinic to assess response to therapy. A follow-up appointment was made during today's visit. Orders: Orders FL guidance in treatment room Today M47.817 - Spondylosis without myelopathy or radiculopathy, lumbosacral region Coding Level of Care Code Procedure Only Diagnoses Lumbosacral spondylosis M47.817 CPT Codes Facet Injection-Lumbar/Sacral - CPT: 27758 - second level, with Fluoroscopy ([id number])
[2023-11-03 13:36] VITALS: BP 110/74; BP 128/80; PULSE 76; PULSE 88; RESP 16; RESP 18; TEMP 35; O2SAT 95; O2SAT 96; BMI 29.8
== END 2023-11-03 13:39 | disposition home or self-care (01) ==
LOC: HO.PMCPRC 12:46
PROVIDERS: PCP Internal Medicine; Visit Provider Internal Medicine
DX: M47.817 Spondylosis without myelopathy or radiculopathy, lumbosacral region (principal)
CPT/HCPCS: 64493; 64494

== ENCOUNTER 2023-11-07 11:14 | Outpatient (AMB) | payer OTHER, SELFPAY ==
--- NOTE | 2023-11-07 11:16 | A.OFFVIS_ITS ---
Intake Vital Signs 11/07/23 11:17 Height 6 ft Weight 220 lb BMI 29.8 BP 128/78 Blood Pressure Location Lt brachial Position Sitting Respiration 12 Pulse 90 Pulse Source Pulse Oximeter Pulse Oximetry (%) 98 Oxygen Delivery Method Room Air Intake Visit Reasons: s/p laura Dx L3-L4-L5 MBB Allergies No Known Allergies Allergy (Verified 11/07/23 11:18) Medication List - Last Reconciled 11/07/23 by Bekah Aparicio LPN gabapentin 100 mg PO TID 30 days venlafaxine ER 150 mg PO DAILY HPI s/p laura Dx L3-L4-L5 MBB HPI Details 33-year-old male who presents today to t he office for a status post bilateral diagnostic L3-L4-L5 MBB. The patient reports no relief following the procedure. He reports soreness at t he site after the procedure. He reports axial pain in his lower back which is about 70% of his pain component. He also a roughly 30% component of radiating bilateral leg pain. The pain is constant since May 2024. He has limited ROM. He is unable to perform his daily activities. He was injured while working with heavy equipment including lifting of sledgehammer and bending. Pain scale is rated as 6 to 7/10 in intensity on average. Bending forward and lifting increases his pain, as does sitting for prolonged periods of time. Walking and standing improve his pain. 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 Putting on shoes and working with shoe laces is difficult. He has exhausted physical therapy, home exercise program, gabapentin, venl afaxine, transforaminal epidural steroid injection, lumbar facet blocks. He was advised against surgery by Dr. Kennedy given his young age. Past procedures: 11/03/23: Lumbar Medial Branch Block, Bi lateral L3, L4 medial branches and L5 Dorsal Ramus (2 levels, 3 nerves): No relief. 09/15/23: Transforaminal epidural steroi d injection, Bilateral, L4/5: 60% relief of leg pain for 1-2 weeks. Review of Systems Const All systems reviewed & are unremarkable except as noted in HPI and below Physical Exam Vital Signs: Last Vital Signs Pulse 90 11/07/23 11:17 Resp 12 11/07/23 11:17 BP 128/78 11/07/23 11:17 Pulse Ox 98 11/07/23 11:17 Oxygen Delivery Method Room Air 11/07/23 11:17 BMI result Body Mass Index 29.8 General: Appears afebrile. Alert and oriented. Mood and affect appropriate. Follows and participates in conversation appropriately. Respiratory effort is unlabored. Able to transition from sit to stand unassisted. Ambulates with bilaterally normal heel strike and toe off. Bending forward reproduces pain. Rising up from a bent forward position also reproduces pain. Results Reviewed Results Reviewed: 06/20/23: MR LUMBAR SPINE WITHOUT CONTRAST FINDINGS: L4-5: Diffuse disc bulge with superimposed left paracentral/subarticular disc protrusion. There is severe spinal canal stenosis with mass effect on the cauda equina nerve roots. Mild right greater than left neural foraminal narrowing. L5-S1: Diffuse disc bulge and bilateral facet arthrosis. Mild neural foraminal narrowing with the disc abutting the exiting L5 nerve roots bilaterally. No significant spinal canal stenosis. The paravertebral soft tissues are unremarkable. IMPRESSION: At L4-5, there is a left paracentral/subarticular disc protrusion causing severe spinal canal stenosis with mass effect on the cauda equina nerve roots. At L5-S1, degenerative disc and facet arthrosis results in mild bilateral neural foraminal narrowing with the disc abutting the exiting L5 nerve roots bilaterally. On my review: There are multiple Schmorl's nodes especially at the L4 inferior and L5 superior and inferior endplates with surrounding cortical edema. Modic changes are notable at the superior endplates of L3, L4, L5 vertebral bodies. Assessment & Plan Assessment & Plan (1) Vertebrogenic low back pain: Code(s): M54.51 - Vertebrogenic low back pain Plan Discussed the intracept procedure as a possible treatment option for his back pain. Also discussed stem cell injection into the disk as a future option if his symptoms continue to persist even after the intracept procedure. Informed the patient that insurance approval is required. We will file a PA for approval and keep him updated. A brochure was provided to the patient. I encouraged the patient to follow general care for his back. I recommended traction, inversion, and swimming at home as tolerated. Scribed for Dr. Mallory by Abdelrahman Anderson, medical i d sales, on 11/07/2023. I, Dr. Mallory, have personally reviewed and agree with the information entered by the scribe. Coding Level of Care Code Est Pt Level 4 (92232) Diagnoses Vertebrogenic low back pain M54.51
[2023-11-07 11:17] VITALS: BP 128/78; PULSE 90; RESP 12; O2SAT 98; BMI 29.8
== END 2023-11-07 11:43 | disposition home or self-care (01) ==
PROVIDERS: PCP Internal Medicine; Visit Provider Internal Medicine
DX: M54.51 Vertebrogenic low back pain (principal)
CPT/HCPCS: 99214

== ENCOUNTER → 2023-11-07 11:14 | Outpatient (BNVA) | payer OTHER, SELFPAY | PROVIDERS: PCP Internal Medicine; Visit Provider Internal Medicine | DX: M54.51 Vertebrogenic low back pain (principal); Z98.890 Other specified postprocedural states | CPT/HCPCS: 99212 ==

== ENCOUNTER → 2023-11-09 08:48 | Outpatient (BNVA) | payer OTHER, SELFPAY | PROVIDERS: PCP Internal Medicine; Visit Provider Internal Medicine | DX: M54.9 Dorsalgia, unspecified (principal) | CPT/HCPCS: 99213 ==